=== PATIENT | male | born 1960 | race Caucasian/White ===

== ENCOUNTER 2019-06-29 15:18 | Observation (INO) ==
[2019-06-29] MEDS ORDERED: CARDIZEM IV ONE (16:00)
[2019-06-29 16:18] LABS: BASO# 0.03 X1000 (0.0-0.2); BASO% 0.3 % (0.0-0.8); EOS% 1.1 % (0.0-10.0); HEMATOCRIT 47.9 % (42.0-52.0); HEMOGLOBIN 15.2 g/dL (14.0-18.0); IMM GRAN# 0.04 X1000 (0.0-0.04); IMM GRAN% 0.4 % (0.0-0.5); LYMPH% 20.7 % (20.5-51.1); MCHC 31.7 g/dL (33-37); MCV 94.5 FL (81-99); MONO# 0.94 X1000 (0.11-0.59); MONO% 10.2 % (1.7-9.3); MPV 9.8 FL (7.4-10.4); NEUT# 6.19 X1000 (1.4-6.5); NEUT% 67.3 % (42.2-75.2); PLT 294 X1000 (130-400); RBC 5.07 XMIL (4.7-6.1); RDW 12.9 % (11.5-14.5)
[2019-06-29 16:27] LABS: INR 0.88
[2019-06-29] MEDS: CARDIZEM 100 MG/NS 100 MG/100 ML IVPB IV SCH ×2 (16:27→23:41)
[2019-06-29 16:28] LABS: PTT 22.5 Seconds (22.3-41.8)
[2019-06-29] MEDS: LOVENOX SUBQ SCH (16:49)
[2019-06-29 16:51] LABS: AGAP 10; BUN 18 mg/dL (8-22); CALCIUM 9.7 mg/dL (8.8-10.2); CHLORIDE 99 mmol/L (98-107); COSMO 272; CREATININE 0.8 mg/dL (0.7-1.2); ESTIMATED GFR > 60; GLUCOSE 98 mg/dL (70-104); MAGNESIUM 2.1 mg/dL (1.5-2.7); POTASSIUM 5.7 mmol/L (3.5-5.1); SODIUM 135 mmol/L (136-145); TCO2 26 mmol/L (25-35)
[2019-06-29] MEDS ORDERED: PRINIVIL PO SCH (21:00)
[2019-06-29] MEDS: SINGULAIR PO SCH (23:39)
[2019-06-29] MEDS ORDERED: LANOXIN IV ONE (23:54)
[2019-06-30] MEDS: LOVENOX SUBQ SCH ×3 (05:12→17:13)
[2019-06-30] MEDS: CARDIZEM 100 MG/NS 100 MG/100 ML IVPB IV SCH (06:04)
[2019-06-30] MEDS: SYNTHROID PO SCH (06:05)
--- NOTE | 2019-06-30 07:24 | EKG Report ---
Test Performed on : 06/29/2019 11:52:05 PM Test Reason : a flutter rvr Blood Pressure : / mmHG Vent. Rate : 157 BPM Atrial Rate : 314 BPM P-R Int : 000 ms QRS Dur : 138 ms QT Int : 272 ms P-R-T Axes : 264 042 -19 degrees QTc Int : 439 ms Critical Test Result: High HR Atrial flutter. with 2:1 AV conduction. Nonspecific intraventricular block Nonspecific T wave abnormality Abnormal ECG No previous ECGs available Confirmed by Shiloh Ayoub MD ([id number]) on 07/01/2019 12:14:32 PM
[2019-06-30] MEDS ORDERED: LOPRESSOR PO ONE (08:38)
[2019-06-30] MEDS: LASIX PO SCH (08:42)
[2019-06-30] MEDS: VOLTAREN PO SCH (08:42)
[2019-06-30] MEDS: ASPIRIN EC PO SCH (08:42)
[2019-06-30] MEDS: DALIRESP PO SCH (08:42)
[2019-06-30] MEDS: ZYRTEC PO SCH (08:43)
[2019-06-30] MEDS: FLONASE NAS SCH (08:44)
[2019-06-30] MEDS ORDERED: CARDIZEM CD PO SCH (09:00)
[2019-06-30] MEDS: KLOR-CON PO SCH (09:02)
[2019-06-30] MEDS ORDERED: DIPRIVAN 1% 500 MG/50 ML BOTTLE ONE (09:41)
[2019-06-30] MEDS ORDERED: XYLOCAINE 4% TOPICAL SOLUTION ONE (09:52)
[2019-06-30] MEDS ORDERED: XYLOCAINE 2% VISCOUS ONE (09:52)
[2019-06-30] MEDS ORDERED: SODIUM CHLORIDE 0.9% 10 ML ONE ×3 (09:52→11:12)
[2019-06-30] MEDS ORDERED: ANESTHESIA PB SET 88 IN 5742 ONE (09:58)
[2019-06-30] MEDS ORDERED: NS 1,000 ML ONE (09:58)
[2019-06-30] MEDS ORDERED: VERSED ONE (10:11)
--- NOTE | 2019-06-30 10:56 | Transesophageal Echocardiogram ---
DATE: 06/30/2019 PHYSICIAN: Cade Damian MD. INDICATIONS: Patient with atrial flutter of uncertain duration, cardioversion has been recommended. PROCEDURE: Transesophageal echocardiography DESCRIPTION: The patient was brought to the cardiac refuse laborer. The throat was anesthetized with Hurricaine and viscous lidocaine. He received intravenous propofol under the services of Dr. Goodwin. The esophagus was intubated without difficulty. Multiple views of the heart were obtained. SUMMARY OF MAIN FINDINGS: 1. The left atrium and appendage are well visualized. They are free of thrombus. The left atrial appendage shows normal flow velocities with a typical pattern of atrial flutter. 2. There is no spontaneous echo contrast. There is no thrombus. 3. The interatrial septum is intact. 4. Agitated saline was injected, there is no shunt. 5. The right atrium is mildly enlarged. 6. The right ventricle shows global hypokinesis in the order of 30%. 7. The pulmonic valve is unremarkable. 8. The aortic valve has 3 cusps, they open normally. Color flow mapping shows trace regurgitation. 9. The mitral valve shows mild degree of regurgitation. 10.The left ventricle shows global hypokinesis in the order 30%. 11.The pulmonary venous flow shows pattern consistent with diastolic dysfunction. 12.The descending thoracic aorta shows mild degree of plaque without ulceration or debris. 13.No pericardial effusion is noted. SUMMARY: This transesophageal echocardiogram shows no evidence of thrombus. The left ventricle is enlarged with decreased function as well as the right ventricle in the order of 30%. No significant valvular abnormalities are noted. There is no contraindication to proceed with cardioversion. cc: MD Xander Dodge MD
--- NOTE | 2019-06-30 11:04 | CARDIAC CATH REPORT ---
DATE: 06/30/2019 PROCEDURE: Direct current cardioversion. INDICATION: Persistent atrial flutter. DESCRIPTION: The patient was brought to the cardiac custodial laborer. He received intravenous propofol under the Anesthesia services with DR. Goodwin. A ALICIA was performed initially and that showed no evidence of thrombus. The pads were positioned in anterior and posterior location. Once the patient was adequate anesthetized, he received a single synchronized countershock to the chest cage consisting of 75 regan per second. He converted from atrial flutter into sinus rhythm. The patient woke up from the effects of anesthesia without deficit. SUMMARY: Successful cardioversion from atrial flutter into sinus rhythm. RECOMMENDATION: The patient will be treated for heart failure by DR. Mejias and antiarrhythmic therapy will be instituted and followup will be provided by Dr. Mejias. cc: MD Xander Dodge MD
[2019-06-30] MEDS ORDERED: NEO-SYNEPHRINE ONE (11:12)
[2019-06-30] MEDS ORDERED: XYLOCAINE-MPF 2% ONE (11:12)
[2019-06-30] MEDS: SPIRIVA INH SCH (11:35)
[2019-06-30] MEDS: VENTOLIN HFA INH SCH ×3 (11:35→20:56)
[2019-06-30] MEDS: BREO ELLIPTA 200/25 MCG INH INH SCH (11:35)
--- NOTE | 2019-06-30 13:29 | EKG Report ---
Test Performed on : 06/30/2019 1:16:27 PM Test Reason : s/p ALICIA/CVN Blood Pressure : / mmHG Vent. Rate : 080 BPM Atrial Rate : 080 BPM P-R Int : 144 ms QRS Dur : 102 ms QT Int : 388 ms P-R-T Axes : 072 061 068 degrees QTc Int : 447 ms Normal sinus rhythm. Normal ECG When compared with ECG of 29-JUN-2019 23:52, (Unconfirmed) Sinus rhythm. has replaced Atrial flutter. Vent. rate has decreased BY 77 BPM QRS duration has decreased Nonspecific T wave abnormality no longer evident in Inferior leads T wave inversion less evident in Anterior leads Confirmed by Shiloh Ayoub MD ([id number]) on 07/01/2019 12:15:22 PM
[2019-06-30 19:22] LABS: ALB/GLOB RATIO 1.4; ALBUMIN 4.4 g/dL (3.5-5.0); ALKALINE PHOSPHATASE 72 U/L (32-122); DIRECT BILIRUBIN < 0.10 mg/dL (0.00-0.20); GOT 37 U/L (10-34); GPT 32 U/L (10-44); TOTAL PROTEIN 7.5 g/dL (6.3-8.3)
[2019-06-30] MEDS: SINGULAIR PO SCH (20:26)
[2019-06-30] MEDS: COREG PO SCH (20:26)
--- NOTE | 2019-06-30 20:36 | PROGRESS NOTE ---
DATE: 06/30/2019 SUMMARY: The patient underwent ALICIA cardioversion this a.m., converting atrial flutter back to sinus rhythm. The patient noted to have cardiomyopathy with left ventricular ejection fraction of around 30% in the setting of global hypokinesis. The patient continues without chest discomfort or shortness of breath. He does relate that he has been having exertional shortness of breath for some time on a chronic basis but no orthopnea. There is no history of angina. He does have a history of daily alcohol use at a rate of 6 beers per day. OBJECTIVE: Vital signs: Blood pressure 107/74, heart rate 88 and regular. Oxygen saturation 96% on room air. Neck: There is no significant jugular venous distention. Chest: Clear to auscultation bilaterally. Cardiac Exam: Reveals a regular rate and rhythm without appreciable murmur or gallop. There is no evidence of peripheral edema. LAB DATA: Remarkable for white blood cell count of 9.2, hematocrit 47.9, hemoglobin 15.2, platelet count 294,000. Protime 12, INR 0.8, PTT 22.5. Sodium 135, potassium 5.7, chloride 99, carbon dioxide 26, BUN 18, creatinine 0.8, glucose 98, magnesium 2.1. TSH 14.82. IMPRESSIONS: 1. Recent atrial flutter with rapid ventricular rate. Patient now back in sinus rhythm following ALICIA cardioversion. 2. Cardiomyopathy with left ventricular ejection fraction of 30%. Etiology not clear but possibly related to persistent tachycardia related atrial flutter. Alternatively cardiomyopathy may related to alcohol consumption. Coronary disease not excluded. 3. Hypertension. 4. Hyperlipidemia. 5. Hypothyroidism. 6. Obesity. 7. Obstructive sleep apnea. PLAN: 1. Continue anticoagulation with Lovenox 1 mg/kg subcutaneously q.12 hours, transitioning to oral anticoagulation with Eliquis. 2. Initiate medical management of patient's cardiomyopathy. Switch from lisinopril to losartan and add Coreg as diltiazem is reduced. Discontinue IV diltiazem. 3. Continue Lasix 20 mg p.o. daily. 4. Screen for coronary disease with Lexiscan sestamibi study. 5. Patient counseled regarding need to curtail alcohol use. Possible relationship of alcohol consumption to cardiomyopathy and atrial arrhythmia is discussed with patient at length. cc: Xander Mejias MD
[2019-07-01] MEDS: LOVENOX SUBQ SCH (04:43)
[2019-07-01] MEDS: SYNTHROID PO SCH (06:28)
[2019-07-01 07:16] LABS: AGAP 13; BUN 12 mg/dL (8-22); CALCIUM 8.6 mg/dL (8.8-10.2); CHLORIDE 97 mmol/L (98-107); COSMO 274; CREATININE 0.8 mg/dL (0.7-1.2); ESTIMATED GFR > 60; GLUCOSE 100 mg/dL (70-104); IRON SATURATION 21 %; POTASSIUM 4.6 mmol/L (3.5-5.1); SODIUM 137 mmol/L (136-145); TCO2 27 mmol/L (25-35); TIBC 345 ug/dL; TOTAL IRON 73 ug/dL (53-167); UNBOUND IRON 272 ug/dL (112-346)
[2019-07-01] MEDS ORDERED: LEXISCAN ONE (08:14)
[2019-07-01] MEDS ORDERED: CARDIZEM CD PO SCH (09:00)
[2019-07-01] MEDS: SPIRIVA INH SCH (09:43)
[2019-07-01] MEDS: VENTOLIN HFA INH SCH ×2 (09:44→16:12)
[2019-07-01] MEDS: BREO ELLIPTA 200/25 MCG INH INH SCH (09:44)
[2019-07-01] MEDS: COZAAR PO SCH ×2 (10:03→10:06)
[2019-07-01] MEDS: FLONASE NAS SCH (10:04)
[2019-07-01] MEDS: VOLTAREN PO SCH (10:06)
[2019-07-01] MEDS: KLOR-CON PO SCH (10:06)
[2019-07-01] MEDS: ASPIRIN EC PO SCH (10:06)
[2019-07-01] MEDS: DALIRESP PO SCH (10:06)
[2019-07-01] MEDS: LASIX PO SCH (10:06)
[2019-07-01] MEDS: COREG PO SCH (10:07)
[2019-07-01] MEDS: ZYRTEC PO SCH (10:07)
[2019-07-01 11:52] VITALS: BP 100/60
--- NOTE | 2019-07-01 12:55 | Diag Imaging Result Document ---
PROCEDURE NAME: MYOCARDIAL PERF SCAN, STR/REST - 06/30/2019 STUDY PERFORMED: Lexiscan Cardiolite stress test. FINDINGS: Lexiscan was infused per standard protocol. There was no chest pain. Stress electrocardiogram was negative for ischemia. PACs were noted. Cardiolite was injected, and 14.8 mCi of Cardiolite was injected for the rest phase and 43.8 mCi of Cardiolite was injected for the stress phase. Gated SPECT images were obtained in standard views. Images revealed significant diaphragmatic and GI interference. There is chest wall attenuation as well. Normal left ventricular cavity size. There is low-grade fixed defect in the base of the inferior wall, and a very small-sized fixed defect in the left ventricular apex suggestive of attenuation defect. There is no evidence of ischemia. Left ventricular ejection fraction by gated SPECT was 58%. CONCLUSIONS: 1. No chest pain. 2. Negative Lexiscan stress electrocardiogram. 3. Myocardial perfusion images revealed no evidence of ischemia. 4. There is significant GI interference and diaphragmatic attenuation, as well as chest wall attenuation. There is low-grade fixed defect in the base of the inferior wall and low-grade fixed defect in the left ventricular apex suggestive of attenuation defect. 5. Left ventricular ejection fraction 58%. cc: MD Xander Hernandez MD
--- NOTE | 2019-07-01 16:51 | PROGRESS NOTE ---
DATE: 07/01/2019 SUBJECTIVE: The patient continues feeling well. He denies chest discomfort or shortness of breath. He is ambulating without lightheadedness. OBJECTIVE: Vital signs: Blood pressure 100/60 to 122/82, heart rate 102, oxygen saturation 93 to 97% on room air. Neck: There is no significant jugular venous distention. Chest: Clear to auscultation. Cardiac Exam: Reveals a regular rate and rhythm without appreciable murmur or gallop. There is no evidence of peripheral edema. PERTINENT DATA: Twelve lead EKG demonstrates normal sinus rhythm, it is within normal limits. Lexiscan sestamibi study demonstrates no convincing scintigraphic evidence of inducible myocardial ischemia. LABORATORY DATA: Includes a sodium 137, potassium 4.6, chloride 97, carbon dioxide 27, BUN 12, creatinine 0.8, glucose 100. Iron 73, TIBC 345, percent saturation 21%, ferritin 131. IMPRESSIONS: 1. Recent atrial flutter with rapid ventricular rate. Patient now back in sinus rhythm following ALICIA/cardioversion. 2. Cardiomyopathy with left ventricular ejection fraction of 30%. This is probably nonischemic based on Lexiscan sestamibi study and possibly related to persistent tachycardia from atrial flutter or alcohol. 3. Hypertension. 4. Hyperlipidemia. 5. Obesity. 6. Obstructive sleep apnea. RECOMMENDATIONS: 1. Continue medical management for patient's apparent nonischemic cardiomyopathy. 2. Continue anticoagulation with Eliquis 5 mg p.o. b.i.d. 3. Patient counseled regarding need to avoid alcohol consumption. 4. Discharge today and follow up in the office in approximately 2 weeks. cc: Xander Mejias MD
[2019-07-01] MEDS ORDERED: ELIQUIS PO SCH (21:00)
== END 2019-07-01 17:27 | disposition home or self-care (01) ==
LOC: 2N 18:41
PROVIDERS: ADMIT Internal Medicine Cardiovascular Disease; ATTEND Internal Medicine Cardiovascular Disease